=== PATIENT | female | born 1935 | race Caucasian/White ===

== ENCOUNTER 2022-04-03 14:52 | Emergency (ER) | payer MEDICARE, OTHER ==
[~2022-04-03] VITALS: Ht 162.6 cm; Wt 57.6 kg
[2022-04-03] MEDS ORDERED: COREG3.125 MG PO (16:16)
[2022-04-03] MEDS ORDERED: CARVEDILOL6.25 MG PO (19:14)
== END 2022-04-03 19:29 | disposition home or self-care (01) ==
LOC: ED 14:52
DX: R05.9 Cough, unspecified (principal); I10 Essential (primary) hypertension; Z79.899 Other long term (current) drug therapy
CPT/HCPCS: 36415; 71045; 80048; 85025; 99283-25

== ENCOUNTER 2022-11-28 18:51 | Emergency (ER) | payer MEDICARE ==
[~2022-11-28] VITALS: Ht 162.6 cm; Wt 58.9 kg
[~2022-11-28 18:51] MED LIST: CARVEDILOL6.25 MG PO; COREG3.125 MG PO
[2022-11-28] MEDS ORDERED: CANE1 EACH MISC (19:45)
[2022-11-28] MEDS ORDERED: PERCOCET 5-3251 EACH PO (19:45)
== END 2022-11-28 20:04 | disposition home or self-care (01) ==
LOC: ED 18:51
DX: G89.29 Other chronic pain (principal); M25.561 Pain in right knee; I10 Essential (primary) hypertension; E78.00 Pure hypercholesterolemia, unspecified; Z88.8 Allergy status to other drugs, medicaments and biological substances; Z88.5 Allergy status to narcotic agent
CPT/HCPCS: 73560; 99283-25